=== PATIENT | male | born 1965 | race Caucasian/White ===

== ENCOUNTER 2017-12-19 23:37 | Emergency (ER) | payer OTHER ==
[~2017-12-19] VITALS: Ht 162.6 cm; Wt 97.1 kg
[2017-12-19] MEDS ORDERED: ASPIR-TRIN325 MG (23:50)
[2017-12-19] MEDS ORDERED: TOPROL XL100 M1 (23:50)
[2017-12-19] MEDS ORDERED: FORTAMET1000 MG (23:50)
[2017-12-19] MEDS ORDERED: TAMS0.4C (23:51)
[2017-12-19] MEDS ORDERED: NEURONTIN300 MG (23:54)
[2017-12-19] MEDS ORDERED: PAMELOR10 M1 (23:55)
[2017-12-19] MEDS ORDERED: LIPITOR20 MG (23:55)
[2017-12-19] MEDS ORDERED: ADDERALL 10 MG10 MG (23:56)
[2017-12-19] MEDS ORDERED: ADIPEX-P37.5 MG (23:56)
== END 2017-12-20 06:47 | disposition home or self-care (01) ==
LOC: ER 23:37
DX: R42 Dizziness and giddiness (principal)